=== PATIENT | female | born 1940 | race Hispanic/Latino ===

== ENCOUNTER 2017-12-05 11:38 | Inpatient (IN) | payer MEDICARE ==
[~2017-12-05] VITALS: Ht 149.9 cm; Wt 48.1 kg
[~2017-12-05 11:38] MED LIST: ATEN50TA PO; CLON0.5T4 PO; DOCU100T PO; PARO40TA72 PO
[2017-12-05 12:00] LABS: BASOPHILS % (AUTO) 0.5 % (0.0-5.0); EOSINOPHILS % (AUTO) 1.5 % (0.0-8.0); HEMATOCRIT 29.4 % (36-48); LYMPHOCYTES % (AUTO) 17.6 % (21.0-51.0); MEAN CORPUSCULAR HEMOGLOBIN 32.2 pg (27.0-33.0); MEAN CORPUSCULAR HGB CONC 33.6 g/dL (32.0-36.0); MONOCYTES % (AUTO) 6.9 % (3.0-13.0); NEUTROPHILS % (AUTO) 73.5 % (40.0-77.0); PLATELET COUNT (AUTO) 164 K/uL (130-400); RED BLOOD CELL COUNT(AUTO) 3.07 MIL/uL (4.00-5.50); RED CELL DISTRIBUTION WIDTH 14.9 % (11.0-15.5); WHITE BLOOD COUNT (AUTO) 6.4 K/uL (4.8-10.8)
[2017-12-05 12:13] LABS: CREATININE 0.8 mg/dL (0.5-1.5); POTASSIUM 3.2 mmol/L (3.5-5.1)
[2017-12-05 12:14] LABS: ALBUMIN 2.8 g/dL (3.5-5.0); BILIRUBIN,TOTAL 0.3 mg/dL (0.2-1.0); TOTAL PROTEIN, SERUM 5.8 g/dL (6.0-8.3)
[2017-12-05 13:17] LABS: CREATINE KINASE MB 0.7 ng/mL (0.5-3.6)
[2017-12-05 13:49] LABS: APPEARANCE,URINE Clear (CLEAR); BILIRUBIN,URINE Negative (NEGATIVE); COLOR,URINE Yellow (YELLOW); GLUCOSE, URINE (UA) Negative (NEGATIVE); KETONES,URINE Negative (NEGATIVE); LEUKOCYTE ESTERASE ,URINE Negative (NEGATIVE); NITRATE,URINE Negative (NEGATIVE); OCCULT BLOOD,URINE Negative (NEGATIVE); PROTEIN,URINE Negative (NEGATIVE); UROBILINOGEN,URINE 0.2 mg/dL (0.2-1.0)
[2017-12-05] MEDS ORDERED: FUROSEMIDE 10 MG/ML 4ML VIAL ONE (14:54)
[2017-12-05] MEDS ORDERED: POTASSIUM BICARB/CIT AC 25 MEQ TABLET.EFF ONE (14:54)
[2017-12-05] MEDS ORDERED: MAG HYDROX/AL HYDROX/SIMETH ES 30 ML SUSP UDCUP PO PRN (17:15)
[2017-12-05] MEDS ORDERED: ZOLPIDEM TARTRATE 5 MG TAB PO PRN (17:15)
[2017-12-05] MEDS ORDERED: CLONAZEPAM 0.5 MG TABLET PO PRN (17:15)
[2017-12-05] MEDS ORDERED: ACETAMINOPHEN 325 MG TAB PO PRN (17:15)
[2017-12-05] MEDS ORDERED: ONDANSETRON HCL 4 MG/2 ML VIAL IV PRN (17:15)
[2017-12-05] MEDS ORDERED: GUAIFENESIN-DM 200/20 MG 10 ML PO PRN (17:15)
[2017-12-05] MEDS ORDERED: MORPHINE SULFATE 2 MG/ML 1ML SYG IV PRN (17:15)
[2017-12-05] MEDS ORDERED: LACTULOSE 20 GM/30 ML UDCUP PO PRN (17:15)
[2017-12-05] MEDS ORDERED: ACETAMINOPHEN-CODEINE 300/30MG TAB PO PRN (17:15)
[2017-12-05] MEDS ORDERED: NITROGLYCERIN 0.4 MG SL TAB SL PRN (17:15)
[2017-12-05] MEDS: DOCUSATE SODIUM 100 MG CAP PO SCH (21:00)
[2017-12-05] MEDS: FAMOTIDINE 20MG TAB 20 MG TAB PO SCH (21:00)
[2017-12-05] MEDS: FUROSEMIDE 10 MG/ML 2ML VIAL IV SCH (21:00)
[2017-12-05] MEDS ORDERED: DOCUSATE SODIUM 100 MG CAP PO ONE (22:05)
[2017-12-05] MEDS ORDERED: FUROSEMIDE 10 MG/ML 2ML VIAL ONE (22:05)
[2017-12-05] MEDS ORDERED: FAMOTIDINE 20MG TAB 20 MG TAB ONE (22:06)
[2017-12-05] MEDS ORDERED: ATENOLOL 50 MG TABLET ONE (22:34)
[2017-12-05 23:30] VITALS: BP 152/83
[2017-12-06] MEDS: HYDRALAZINE HCL 20 MG/ML VIAL IV PRN (03:59)
[2017-12-06 05:02] VITALS: BP 185/85
[2017-12-06 08:00] VITALS: BP 153/75
[2017-12-06] MEDS: FUROSEMIDE 10 MG/ML 2ML VIAL IV SCH ×2 (09:10→21:13)
[2017-12-06] MEDS: PAROXETINE HCL 20 MG TABLET PO SCH (09:10)
[2017-12-06] MEDS: FAMOTIDINE 20MG TAB 20 MG TAB PO SCH ×2 (09:10→21:14)
[2017-12-06] MEDS: DOCUSATE SODIUM 100 MG CAP PO SCH ×2 (09:11→21:14)
[2017-12-06] MEDS: ENOXAPARIN SODIUM 40 MG/0.4 ML SYRINGE SQ SCH (09:11)
[2017-12-06 11:00] VITALS: BP 151/72
[2017-12-06 16:00] VITALS: BP 152/80
[2017-12-06] MEDS: ATENOLOL 50 MG TABLET PO SCH (16:51)
[2017-12-06 20:15] VITALS: BP 140/59
[2017-12-07] MEDS: HYDRALAZINE HCL 20 MG/ML VIAL IV PRN (00:49)
[2017-12-07 00:55] VITALS: BP 176/82
[2017-12-07 04:27] VITALS: BP 137/59
[2017-12-07 05:38] LABS: BASOPHILS % (AUTO) 0.6 % (0.0-5.0); EOSINOPHILS % (AUTO) 1.4 % (0.0-8.0); HEMATOCRIT 31.9 % (36-48); LYMPHOCYTES % (AUTO) 33.5 % (21.0-51.0); MEAN CORPUSCULAR HEMOGLOBIN 32.6 pg (27.0-33.0); MEAN CORPUSCULAR HGB CONC 34.4 g/dL (32.0-36.0); MEAN CORPUSCULAR VOLUME 94.9 fL (79-99); NEUTROPHILS % (AUTO) 54.5 % (40.0-77.0); PLATELET COUNT (AUTO) 197 K/uL (130-400); RED BLOOD CELL COUNT(AUTO) 3.37 MIL/uL (4.00-5.50); RED CELL DISTRIBUTION WIDTH 14.7 % (11.0-15.5); WHITE BLOOD COUNT (AUTO) 5.5 K/uL (4.8-10.8)
[2017-12-07 05:50] LABS: B-TYPE NATRIURETIC PEPTIDE 386 pg/mL (0-100)
[2017-12-07 06:09] LABS: ALANINE AMINOTRANSFERASE 16 U/L (12-78); ALBUMIN 2.9 g/dL (3.5-5.0); ASPARTATE AMINOTRANSFERASE 12 U/L (10-37); BILIRUBIN,TOTAL 0.5 mg/dL (0.2-1.0); CARBON DIOXIDE 25 mmol/L (21-32); CHLORIDE 107 mmol/L (101-111); CHOLESTEROL 124 mg/dL (<200); CREATINE KINASE MB < 0.5 ng/mL (0.5-3.6); CREATINE KINASE, TOTAL 44 U/L (21-232); GLOMERULAR FILTR. RATE CALC 57 mL/min (>60); GLUCOSE,RANDOM 88 mg/dL (70-105); HDL CHOLESTEROL 72 mg/dL (35-85); LDL DIRECT 59 mg/dL (0-99); MYOGLOBIN 38 ng/mL (10-92); POTASSIUM 3.1 mmol/L (3.5-5.1); SODIUM SERUM 141 mmol/L (136-145); TRIGLYCERIDES 30 mg/dL (30-200); TROPONIN I < 0.04 ng/mL (0.00-0.06); UREA NITROGEN, BLOOD 32 mg/dL (7-18)
[2017-12-07] MEDS ORDERED: FURO20TA6 PO (07:46)
[2017-12-07] MEDS ORDERED: POTA10TA PO (07:46)
[2017-12-07 07:47] VITALS: BP 135/63
[2017-12-07] MEDS: FUROSEMIDE 10 MG/ML 2ML VIAL IV SCH (09:55)
[2017-12-07] MEDS: DOCUSATE SODIUM 100 MG CAP PO SCH (09:55)
[2017-12-07] MEDS: ENOXAPARIN SODIUM 40 MG/0.4 ML SYRINGE SQ SCH (09:56)
[2017-12-07] MEDS: PAROXETINE HCL 20 MG TABLET PO SCH (09:56)
[2017-12-07] MEDS: FAMOTIDINE 20MG TAB 20 MG TAB PO SCH (09:56)
[2017-12-07 12:01] VITALS: BP 113/65
[2017-12-07 16:38] VITALS: BP 128/49
[2017-12-07 17:45] VITALS: BP 128/49
[2017-12-07] MEDS: ATENOLOL 50 MG TABLET PO SCH (17:45)
== END 2017-12-07 17:51 | disposition home or self-care (01) | DRG 291 ==
LOC: EDH 11:38 → EDHIP 17:06 → 4BH 23:48
PROVIDERS: ADMIT Family Medicine; ATTEND Family Medicine
DX: I11.0 Hypertensive heart disease with heart failure (principal); J81.0 Acute pulmonary edema; F03.90 Unspecified dementia, unspecified severity, without behavioral disturbance, psychotic disturbance, mood disturbance, and anxiety; I50.9 Heart failure, unspecified; M81.0 Age-related osteoporosis without current pathological fracture; Z79.899 Other long term (current) drug therapy; F32.9 Major depressive disorder, single episode, unspecified; F41.9 Anxiety disorder, unspecified; K59.00 Constipation, unspecified; M19.90 Unspecified osteoarthritis, unspecified site; Z98.51 Tubal ligation status
CPT/HCPCS: 36415; 71046; 80053; 80061; 81003; 82550; 82553; 83874; 83880; 84484; 85025; 93005; 93306; J0360; J1650; J1940

== ENCOUNTER 2018-02-22 19:04 | Emergency (ER) | payer MEDICARE ==
[~2018-02-22 19:04] MED LIST changes: +CLON0.5T12 PO; -CLON0.5T4 PO; +FURO20TA6 PO; +POTA10TA PO
[2018-02-22 21:08] LABS: BASOPHILS % (AUTO) 0.2 % (0.0-5.0); EOSINOPHILS % (AUTO) 1.9 % (0.0-8.0); HEMATOCRIT 33.9 % (36-48); LYMPHOCYTES % (AUTO) 36.9 % (21.0-51.0); MEAN CORPUSCULAR HEMOGLOBIN 31.8 pg (27.0-33.0); PLATELET COUNT (AUTO) 180 K/uL (130-400); RED BLOOD CELL COUNT(AUTO) 3.72 MIL/uL (4.00-5.50); RED CELL DISTRIBUTION WIDTH 13.4 % (11.0-15.5); WHITE BLOOD COUNT (AUTO) 5.7 K/uL (4.8-10.8)
[2018-02-22 21:18] LABS: CREATININE 1.1 mg/dL (0.5-1.5); POTASSIUM 3.9 mmol/L (3.5-5.1)
[2018-02-22 21:19] LABS: APPEARANCE,URINE Clear (CLEAR); BILIRUBIN,URINE Negative (NEGATIVE); COLOR,URINE Yellow (YELLOW); GLUCOSE, URINE (UA) Negative (NEGATIVE); KETONES,URINE Negative (NEGATIVE); LEUKOCYTE ESTERASE ,URINE Negative (NEGATIVE); NITRATE,URINE Negative (NEGATIVE); OCCULT BLOOD,URINE Negative (NEGATIVE); PROTEIN,URINE Negative (NEGATIVE); UROBILINOGEN,URINE 0.2 mg/dL (0.2-1.0)
[2018-02-22 21:25] LABS: ALBUMIN 3.4 g/dL (3.5-5.0); BILIRUBIN,TOTAL 0.3 mg/dL (0.2-1.0); TOTAL PROTEIN, SERUM 6.6 g/dL (6.0-8.3)
== END 2018-02-22 22:57 | disposition home or self-care (01) ==
LOC: EDH 19:04
DX: I10 Essential (primary) hypertension (principal); R31.9 Hematuria, unspecified; R53.1 Weakness; Z98.890 Other specified postprocedural states
CPT/HCPCS: 36415; 80053; 81003; 85025